=== PATIENT | male | born 2000 | race Caucasian/White ===

== ENCOUNTER 2022-07-02 14:03 | Outpatient (REF) | payer OTHER, SELFPAY ==
--- NOTE | ~2022-07-02 | XR_ITS ---
EXAMINATION: CHEST AND RIGHT RIBS. CLINICAL INFORMATION: Dyspnea and pain COMPARISON: None TECHNIQUE: Chest 2 views. Bilateral RIBS 3 views. FINDINGS: Chest: The lungs are well-expanded and clear acute pneumonic consolidation. The heart size and pulmonary vascularity is normal. No gross bony abnormality seen. Bilateral RIBS: Multiple views of bilateral ribs reveal no visible fracture or bony abnormality. The soft tissues are normal. XR/XR ribs BI 3V IMPRESSION: Unremarkable bilateral ribs and chest exam.
--- NOTE | ~2022-07-02 | XR_ITS ---
EXAMINATION: CHEST AND RIGHT RIBS. CLINICAL INFORMATION: Dyspnea and pain COMPARISON: None TECHNIQUE: Chest 2 views. Bilateral RIBS 3 views. FINDINGS: Chest: The lungs are well-expanded and clear acute pneumonic consolidation. The heart size and pulmonary vascularity is normal. No gross bony abnormality seen. Bilateral RIBS: Multiple views of bilateral ribs reveal no visible fracture or bony abnormality. The soft tissues are normal. XR/XR chest 2V IMPRESSION: Unremarkable bilateral ribs and chest exam.
== END 2022-07-02 14:04 | disposition home or self-care (01) ==
LOC: HO.XRAY 14:03
PROVIDERS: PCP Internal Medicine; Visit Provider Internal Medicine
DX: R07.9 Chest pain, unspecified (principal); R06.09 Other forms of dyspnea
CPT/HCPCS: 71046; 71110

== ENCOUNTER 2022-07-11 08:48 | Outpatient (REF) | payer OTHER, SELFPAY ==
--- NOTE | ~2022-07-11 | FL_ITS ---
EXAMINATION: FL BARIUM SWALLOW CLINICAL INFORMATION: Gastroesophageal reflux disease. Heartburn, reflux, bloating COMPARISON: None TECHNIQUE: Barium swallow examination is performed using fluoroscopic evaluation in addition to multiple fluoroscopic spot views. The patient is imaged both upright and prone and using both thick and thin sulfate along with effervescent granules. Fluoroscopy time: 1.0 minutes DAP: 6.269 Gycm2 Images: 9 series are submitted FINDINGS: There is no delay in swallowing. There is prompt passage of a 12.5 mm diameter barium tablet. There is no suspicious mass or fixed area of narrowing. No mucosal irregularities. Esophageal motility appeared within normal limits. There was no hiatal hernia demonstrated. There was no GE reflux demonstrated under fluoroscopy. FL/FL barium swallow IMPRESSION: There is no mass or fixed area of narrowing. Normal esophageal motility. No hiatal hernia or GE reflux demonstrated
== END 2022-07-11 08:49 | disposition home or self-care (01) ==
LOC: HO.XRAY 08:48
PROVIDERS: PCP Internal Medicine; Visit Provider Physician Assistant
DX: K21.9 Gastro-esophageal reflux disease without esophagitis (principal)
CPT/HCPCS: 74220

== ENCOUNTER 2022-07-18 12:27 | Day surgery (SDC) | payer OTHER, SELFPAY ==
--- NOTE | 2022-07-17 10:44 | HO.ANESPROP2 ---
Documented by User: Radha Hollingsworth NP 07/17/22 10:46 HPI - Anesthesia Eval Consult details Narrative: 21yo M for Upper Endoscopy Recently eval'd by pulm for snf CP and mild DICKENS. Per note: He is quite inactive college student, plays basketball. Dyspnea on exertion is very nonspecific. Lungs seem to be okay on examination and auscultation. CHEST X-RAY IS ORDERED TO RULE OUT ANY PARENCHYMAL . LUNG DISEASE. WILL ALSO GET PULMONARY FUNCTION TEST DONE , ESPECIALLY TO SEE IF HE HAS ANY ELEMENT OF BRONCHIAL ASTHMA. IN THE MEANTIME HE IS REASSURED, ADVISED TO CONTINUE DOING PHYSICAL EXERCISES, AND CONTINUE TO PLAY SPORTS. WILL RECHECK HIM AFTER THE PULMONARY. FUNCTION TEST CXR WNL, PFT pending [facility] Active Problems Active Problems: All Active Problems (Updated 07/02/22 @ 15:13 by Mathew Nogueira MD) Dyspnea on exertion (Acute) Chest pain (Acute) Chronic constipation (Acute) Acid reflux (Acute) Past Medical History Medical History Chest pain Dyspnea on exertion Family History Family History Mother PUD (peptic ulcer disease) Social History Social History Household Members: Family Housing Other:: [facility] Alcohol intake: current Patient Tobacco Use Status: Never used Tobacco Use of substances other than those prescribed or required for medical reasons: Yes Substance Use Type: Marijuana Substance Use Frequency: Weekly Are you DNR?: No Advance Directives: No Advance Directives Information Provided: Yes Current occupational status: student Current occupation: [employer] Allergies Allergy/AdvReac Type Severity Reaction Status Date / Time No Known Allergies Allergy Verified 07/02/22 14:45 Home Medications Medication Instructions Recorded Confirmed Last Taken Type cetirizine 10 mg capsule (Zyrtec) 10 mg PO DAILY PRN 07/02/22 Unknown History psyllium husk 0.4 gram capsule 0.4 g PO BEDTIME 07/02/22 Unknown History (Metamucil) sulfamethoxazole 800 1 tab PO BID 07/02/22 Unknown History mg-trimethoprim 160 mg tablet triamcinolone acetonide 55 mcg intranasal 07/02/22 Unknown History mcg/actuation nasal spray,aerosol Exam Exam Date and Time: July 17, 2022 1044 Narrative Narrative: XR chest 2V 07/2022 IMPRESSION: Unremarkable bilateral ribs and chest exam.? Assessment and Plan Assessment Anesthesia Assessment: Chart Reviewed Documented by User: Fe Najera MD 07/18/22 13:46 [facility] Past Medical History Medical History Chest pain Dyspnea on exertion Family History Family History Mother PUD (peptic ulcer disease) Family history of problems with anesthesia: No Surgical History History of Problems with Anesthesia: No Social History Social History Household Members: Family Housing Other:: [facility] Alcohol intake: current Patient Tobacco Use Status: Never used Tobacco Use of substances other than those prescribed or required for medical reasons: Yes Substance Use Type: Marijuana Substance Use Frequency: Weekly Are you DNR?: No Advance Directives: No Advance Directives Information Provided: Yes Current occupational status: student Current occupation: [employer] Med[employer] Allergies Allergy/AdvReac Type Severity Reaction Status Date / Time No Known Allergies Allergy Verified 07/02/22 14:45 Home Medications Medication Instructions Recorded Confirmed Last Taken Type cetirizine 10 mg capsule (Zyrtec) 10 mg PO DAILY PRN 07/02/22 Unknown History psyllium husk 0.4 gram capsule 0.4 g PO BEDTIME 07/02/22 Unknown History (Metamucil) sulfamethoxazole 800 1 tab PO BID 07/02/22 Unknown History mg-trimethoprim 160 mg tablet triamcinolone acetonide 55 mcg intranasal 07/02/22 Unknown History mcg/actuation nasal spray,aerosol Exam Airway Mallampati Class: I TM Dist: >3cm Neck ROM: Full Assessment and Plan Assessment Anesthesia Assessment: Anesthesia Plan Discussed Final Anesthetic Review Family History of Problems with Anesthesia: No History of Problems with Anesthesia: No NPO: Yes ASA Class: II Final Preanesthetic Review: No Changes in Pt Med Stat, Meds/Allgs Chart Reviewed, Consent Obtained/Reviewed and Anes Risks/Benef Reviewed Patient Risk: Low Procedure Risk: Low Anesthetic Plan Anesthetic Plan: GA Disposition: Standard PACU
[2022-07-18 12:50] VITALS: BMI 25.7
[2022-07-18 12:53] VITALS: BP 127/67; PULSE 55; RESP 16; TEMP 36.3; O2SAT 98
[2022-07-18] MEDS: Lactated Ringers 1,000 ML 100 ML IVCONT (13:06)
--- NOTE | 2022-07-18 14:26 | MHC.SHP ---
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 Symptoms predominantly in the evening. No difficulty with swallowing, no other GI complaints such as abdominal pain, nausea, vomiting or changes in bowel habits. Relevant Family History (Specify if Yes): Yes Relevant Social History: Alcohol Use (weekly ) Medical History: No relevant PMH History of Previous Operations: No relevant previous surgery Allergies: Allergies Allergy/AdvReac Type Severity Reaction Status Date / Time No Known Allergies Allergy Verified 07/02/22 14:45 Review of Systems Review of Systems Comment: Ten point review of systems was negative except as mentioned above in the HPI Exam Exam Comment: Gen appear: No acute distress, well nourished HEENT: no icterus, Chest: No overt resp distress Abd: soft, nontender, nondistended Psych: Stable affect, answering questions appropriately Neuro: A/Ox3 noted to move all extremities spontaneously Ext: no peripheral edema, left 3rd finger with normal post surgical change Plan Diagnosis/Plan: Unchanged I have reviewed the history and physical and performed a pertinent physical examination on my patient. No changes have occurred unless specified.
--- NOTE | 2022-07-18 14:28 | W.PM.OPN ---
Operative Note Operative Note Date of Service: 07/18/22 Narrative: Procedure: Esophagogastroduodenoscopy Endoscopist: Sobia San MD Indication: Dyspepsia Anesthesia Provider: Savanna Gallagher CRNA Anesthesia Type: MAC EGD Procedure:?? The procedure, indications, preparation and potential complications were reviewed with the patient, who indicated understanding and gave written informed consent to proceed. A physical exam was performed. The endoscope was introduced through the mouth, and advanced to the second part of duodenum. The mucosa was carefully examined on slow withdrawal of the endoscope. The patient tolerated the procedure well. There were no immediate complications.? EGD Findings:? ? Esophagus:? The Z line was at 40 cm. Scant exudates and linear furrows were seen in middle and lower third of the esophagus. Forceps biopsies were obtained to rule out eosinophilic esophagitis (tug sign positive). ? Stomach:? Normal mucosa was noted in the stomach. ? Duodenum:? Normal mucosa was noted in the whole of the examined duodenum. EGD Impressions:? ? Exudates and furrowing in the esophagus suspicious for eosinophilic esophagitis. (biopsy) ? Normal stomach ? Normal duodenum Recommendations:?? ? Follow biopsy results. Our office will call or send a letter with results within 7-10 days. ? Continue PPI therapy in the meantime. If the biopsies confirm suspicion of EoE will discuss further management in office. ? Avoid NSAIDs and smoking. ? Follow up in GI office as scheduled. Above has been reviewed with the patient. Educational hand outs were provided at discharge.
[2022-07-18 15:06] VITALS: BP 102/45; PULSE 59; RESP 14; TEMP 36.6; O2SAT 98
[2022-07-18 15:21] VITALS: BP 106/56; PULSE 49; RESP 16; O2SAT 96
[2022-07-18 15:36] VITALS: BP 122/78; PULSE 58; RESP 16; TEMP 36.3; O2SAT 98
== END 2022-07-18 15:44 | disposition home or self-care (01) ==
PROVIDERS: PCP Internal Medicine; Visit Provider Internal Medicine
PROC: 0DJ08ZZ Inspection of Upper Intestinal Tract, Via Natural or Artificial Opening Endoscopic (ICD-10-PCS; CPT 43235; principal; 2022-07-18 14:10)
DX: K21.9 Gastro-esophageal reflux disease without esophagitis (principal); K22.89 Other specified disease of esophagus; R07.89 Other chest pain; R06.02 Shortness of breath; F12.90 Cannabis use, unspecified, uncomplicated; Z79.899 Other long term (current) drug therapy
CPT/HCPCS: 43239; 88305; J2250

== ENCOUNTER → 2022-07-25 13:20 | Outpatient (BNVA) | payer OTHER, SELFPAY | PROVIDERS: PCP Internal Medicine; Visit Provider Internal Medicine | DX: R07.9 Chest pain, unspecified (principal); R06.09 Other forms of dyspnea | CPT/HCPCS: 94010 ==